=== PATIENT | female | born 1960 | race Caucasian/White ===

== ENCOUNTER 2019-11-21 00:11 | Observation (INO) ==
--- OUTSIDE RECORDS SUMMARY | 2019-11-21 00:14 | External Medical Summary | Continuity of Care Document ---
:1960 Author Name Buddy Almanza, Provider Address Unavailable Unavailable , Care Team Providers Name Role Phone Unavailable Unavailable Unavailable Janet Bernard M.D. Unavailable [email or web address] Ra Wilson M.D. Unavailable [email or web address] PCP, UNKNOWN Unavailable Unavailable Unavailable Unavailable Unavailable Problems General counselling and advice on contraception (V25.09) (Z3 0.09) Allergies and Adverse Reactions No Known Drug Allergies (Allergy) Medications Norethindrone 0.35 MG Oral Tablet; Take 1 tablet daily Archie Dalal Start: 16-Feb-2011 Quantity: 1 28 EA Disp Pack Refills: 1 Jolivette 0.35 MG TABS; TAKE 1 TABLET DAILY. Archie Bernard Start: 13-Feb-2012 Quantity: 28 Refills: 1 Procedures History of Tonsillectomy Status: Complet ed General counselling and advice on contraception Immunizations Immunizations not documented Family History Mother Family history of Cervical Cancer Status: Active Unknown Family Member Family history of Diabetes Mellitus (V18.0) Status: Active Comments: Family History Social History - Smoking Status Unknown if ever smoked Plan of Treatment Planned Observations Planned Goals not documented Results No Known Results Results not documented
--- OUTSIDE RECORDS SUMMARY | 2019-11-21 00:14 | External Medical Summary | Continuity of Care Document ---
:1960 Author Name Buddy Almanza, Provider Address Unavailable Unavailable , Care Team Providers Name Role Phone Unavailable Unavailable Unavailable Janet Bernard M.D. Unavailable [email or web address] Ra Wilson M.D. Unavailable [email or web address] PCP, UNKNOWN Unavailable Unavailable Unavailable Unavailable Unavailable Problems General counselling and advice on contraception (V25.09) (Z3 0.09) Allergies and Adverse Reactions No Known Drug Allergies (Allergy) Medications Jolivette 0.35 MG TABS; TAKE 1 TABLET DAILY. Archie Bernard Start: 13-Feb-2012 Quantity: 28 Refills: 1 Norethindrone 0.35 MG Oral Tablet; Take 1 tablet daily Archie Dalal Start: 16-Feb-2011 Quantity: 1 28 EA Disp Pack Refills: 1 Procedures History of Tonsillectomy Status: [...]
[2019-11-21] MEDS ORDERED: ONDANSETRON INJ 2 MG/ML 2 ML VIAL IV STA ×2 (00:27→02:09)
[2019-11-21] MEDS ORDERED: MoRPHine SULFATE 4 MG/ML 1 ML CARP\\VIAL IV STA ×2 (00:27→02:09)
[2019-11-21] MEDS ORDERED: SODIUM CHLORIDE 0.9% 500 ML IV SCH (00:30)
[2019-11-21 00:48] LABS: Basophils # (auto) 0.04 K/uL (0-0.2); Basophils % (auto) 0.4 %; Eosinophils # (auto) 0.13 K/uL (0-0.5); Eosinophils % (auto) 1.3 %; Hematocrit (blood only) 39.7 % (37-47); Hemoglobin 12.9 g/dL (12.0-16.0); Immature Granulocytes # (auto) 0.01 K/uL (0.00-0.02); Immature Granulocytes % (auto) 0.1 %; Lymphocytes # (auto) 2.66 K/uL (1.2-3.4); Lymphocytes % (auto) 27.5 %; Mean Corpuscular Hemoglobin 28.7 pg (25-34); Mean Corpuscular Hgb Conc 32.5 g/dL (32-36); Mean Corpuscular Volume 88.2 fL (80-100); Mean Platelet Volume 9.6 fL (7.4-10.4); Monocytes # (auto) 1.05 K/uL (0.11-0.59); Monocytes % (auto) 10.8 %; Neutrophils % (auto) 59.9 %; Platelet Count 226 K/uL (130-400); RDW Standard Deviation 45.3 fL (36.4-46.3); White Blood Count 9.69 K/uL (4.8-10.8)
[2019-11-21 00:48] LABS: iSTAT Creatinine 0.8 mg/dl (0.6-1.3); iSTAT Hemoglobin 13.3 g/dl (12.0-16.0); iSTAT Ionized Calcium 1.15 mmol/l (1.12-1.32); iSTAT Potassium 3.7 mmol/L (3.3-5.0)
[2019-11-21 01:04] LABS: Albumin Level 3.9 gm/dl (3.4-5.0); BUN Creatinine Ratio 24.4 (10-20); Calcium 9.2 mg/dl (8.5-10.1); Creatinine Clr Calc Pharmacy 88.1 ml/min; Est GFR (African American) 85.1; Est GFR (Non-African American) 73.4; Potassium 3.6 mmol/L (3.5-5.1)
[2019-11-21 01:07] LABS: Albumin Globulin Ratio 0.9 (0.9-2); Bilirubin,Total 0.7 mg/dl (0.2-1); Globulin 4.3 gm/dl (2.5-4.0); Total Protein 8.2 gm/dl (6.4-8.2)
[2019-11-21 01:31] LABS: Partial Thromboplastin Time 26.7 Seconds (21.0-31.0); Prothrombin Time 10.4 Seconds (9.0-12.0)
[2019-11-21] MEDS ORDERED: OPTIRAY 320 125ml IV PRN (01:51)
--- NOTE | 2019-11-21 02:02 | Emergency Department Note ---
Entered by Jeanie Israel acting as a scribe for History of Present Illness General Chief complaint: Rib Injury/Pain Stated complaint: STABBING RIB PAIN Time Seen by Provider: 11/21/19 00:21 Source: patient Mode of arrival: ambulatory Limitations: no limitations History of Present Illness Onset (ago): hour(s) 1 Location: chest (right rib) Radiation: non-radiation Pain Consistency: + constant Maximum Pain Intensity: 9 Current Pain Intensity: 9 Relieved By: + none Exacerbated By: + movement Associated symptoms: + shortness of breath and + other (-urinary symptoms); no chest pain, no fever/chills and no nausea/vomiting Treatments prior to arrival: none The patient is a 59 year old female who presents to the ED with complaints of right rib 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 She states the pain feels sharp in nature and rates her discomfort as a 9/10 in severity. Movement worsens her pa in. She denies any recent leg swelling besides an ankle that has been "swollen for months" but states that this is likely secondary to her weight. She admits to a history of a superficial blood clot in her leg previously while on hormone therapy. She denies any history of PE. She denies any chest pain, urinary symptoms, fever or vomiting. She does complain of shortness of breath but states this is from pain. She denies any history of kidney stones. The patient states she ate a meat lovers pizza at 1730 this evening. She still has her gallbladder. The patient states she has no chronic medical problems and had been doing well "until this pain started". Home Medications Home Medications Medication Instructions Recorded Confirmed Type citalopram 20 mg PO DAILY 11/21/19 11/21/19 History Allergies Allergy/AdvReac Type Severity Reaction Status Date / Time No Known Allergies Allergy NONE Verified 11/21/19 00:29 Past Med/Surg History Medical History Tear of medial meniscus of left knee Social History Preferred Language: Uzbek Feels Safe at Home: Yes Smoking Status: Never smoker Review of Systems See HPI for pertinent positives & negatives. and A total of 10 systems reviewed and were otherwise negative Physical Exam Vital Signs Vital Signs - 24 hr 11/21/19 00:18 11/21/19 01:04 11/21/19 01:56 Temperature 36.3 C L Temperature Source Oral Pulse Rate 67 65 Pulse Rate [Right Finger] 64 64 Pulse Rhythm Regular Pulse Rhythm [Right Finger] Regular Pulse Strength [Right Finger] Normal Respiratory Rate 22 16 24 Respiratory Effort / Characteristics Non-Labored Spontaneous Respiratory Depth Normal Normal Respiratory Pattern Regular Blood Pressure 144/78 H Blood Pressure [Right Arm] 128/90 125/67 Blood Pressure Mean 100 Blood Pressure Mean [Right Arm] 102 86 Blood Pressure Position [Right Arm] Standing Lying Pulse Oximetry 99 99 96 Oxygen Delivery Method Room Air Room Air Sepsis Recent Fever Within 48 Hours No Sepsis Action Taken by Nursing No Action Required Constitutional: Vital signs reviewed. Eyes: Pupils are equal round reactive to light. Conjunctiva are noninjected. ENT: Pharynx is clear without erythema or exudate. Mucous membranes are moist. Neck supple without meningeal signs. Respiratory: Clear to auscultation bilaterally. Breath sounds are equal bilaterally. Cardiovascular: Regular rate and rhythm. No rubs or gallops. GI: Soft and nondistended. RUQ tenderness. No Ko's sign. Bowel sounds are present. Musculoskeletal: No peripheral edema. No lower extremity tenderness. Integumentary: No cyanosis. Neurological: The patient is awake and alert. No focal deficits. Psychiatric: Normal affect. Course Course 0022: The patient was evaluated in room B2 and a complete history and physical were performed. 0110: I reevaluated the patient. She states her pain is now going across her mid abdomen. She is tender in that area right now. We are awaiting her CT results. 0128: I reevaluated the patient. She states the pain is now more in her right ribs and she cannot take a deep breath because of pain. She is agreeable to CT angiogram of the chest. Consultations Consultation #1: Dr. Lockett Time: 02:15 Administered Medications Ioversol (Optiray 320 125ml) 125 ml IV ONCE PRN PRN Reason: Interaction Checking Stop: 11/25/19 01:50 Last Admin: 11/21/19 01:52 Dose: 93 ml Documented by: [id number] Discontinued Medications Sodium Chloride (Nss) 500 mls @ 999 mls/hr IV .Q31M MAYA Stop: 11/21/19 01:00 Last Infusion: 11/21/19 01:28 Dose: 0 mls/hr Documented by: [id number] Admin: 11/21/19 00:36 Dose: 999 mls/hr Documented by: [id number] Morphine Sulfate (Morphine Sulfate) 4 mg IV NOW STA Stop: 11/21/19 00:28 Last Admin: 11/21/19 00:36 Dose: 4 mg Documented by: [id number] Ondansetron HCl (Zofran) 4 mg IV NOW STA Stop: 11/21/19 00:28 Last Admin: 11/21/19 00:36 Dose: 4 mg Documented by: [id number] Medical Decision Making Differential Diagnosis The differential diagnoses considered include cholecystitis, kidney stone, PE, [place], pneumothorax. Medical Records Attestation: I reviewed the patient's medical records. I did perform a limited focused review of portions of the patient's old chart on the electronic medical record. The patient has had no recent pertinent visits to this hospital. Home Medications Current Medication List: was personally reviewed by me Laboratory Data Attestation: I reviewed the patient's lab results. Result diagrams: 11/21/19 00:39 11/21/19 00:39 Lab Results 11/21/19 11/21/19 11/21/19 Range/Units 00:32 00:33 00:39 WBC (4.8-10.8) K/uL RBC (4.2-5.4) M/uL Hgb (12.0-16.0) g/dL POC Hgb 13.3 (12.0-16.0) g/dl Hct (37-47) % POC Hct 39 (37-47) % MCV (80-100) fL MCH (25-34) pg MCHC (32-36) g/dL RDW Std Deviation (36.4-46.3) fL RDW Coeff of Janie (11.5-14.5) % Plt Count (130-400) K/uL MPV (7.4-10.4) fL Immature Gran % (Auto) % Neut % (Auto) % Lymph % (Auto) % [place] % (Auto) % Eos % (Auto) % Baso % (Auto) % Immature Gran # (Auto) (0.00-0.02) K/uL Neut # (Auto) (1.4-6.5) K/uL Lymph # (Auto) (1.2-3.4) K/uL [place] # (Auto) (0.11-0.59) K/uL Eos # (Auto) (0-0.5) K/uL Baso # (Auto) (0-0.2) K/uL PT (9.0-12.0) Seconds INR (0.9-1.1) APTT (21.0-31.0) Seconds PTT Ratio POC D-Dimer 300 (0-450) ng/mlFEU POC Sodium 138 (135-144) mmol/L Sodium 136 (136-145) mmol/L POC Potassium 3.7 (3.3-5.0) mmol/L Potassium 3.6 (3.5-5.1) mmol/L POC Chloride 101 (101-112) mmol/L Chloride 104 (98-107) mmol/L Carbon Dioxide 27 (21-32) mmol/L POC Total CO2 25 (24-31) mEq/l Anion Gap 6.0 (3-11) POC Anion Gap 16.0 (16-25) mmol/L POC BUN 20 H (7-18) mg/dl BUN 21 H (7-18) mg/dl Creatinine 0.87 (0.6-1.2) mg/dl POC Creatinine 0.8 (0.6-1.3) mg/dl Est Cr Clr Drug Dosing 88.1 ml/min Est GFR ( Amer) 85.1 Est GFR (Non-Af Amer) 73.4 BUN/Creatinine Ratio 24.4 H (10-20) Glucose 98 (70-99) mg/dl POC Glucose (other) 101 H (70-99) mg/dl Calcium 9.2 (8.5-10.1) mg/dl POC Ioniz Calcium Nubia 1.15 (1.12-1.32) mmol/l Total Bilirubin 0.7 (0.2-1) mg/dl AST 12 L (15-37) U/L ALT 21 (12-78) U/L Alkaline Phosphatase 114 (45-117) U/L POC Troponin I < 0.03 (0-0.045) ng/ml Total Protein 8.2 (6.4-8.2) gm/dl Albumin 3.9 (3.4-5.0) gm/dl Globulin 4.3 H (2.5-4.0) gm/dl Albumin/Globulin Ratio 0.9 (0.9-2) Lipase 85 (73-393) U/L 11/21/19 11/21/19 Range/Units 00:39 00:39 WBC 9.69 (4.8-10.8) K/uL RBC 4.50 (4.2-5.4) M/uL Hgb 12.9 (12.0-16.0) g/dL POC Hgb (12.0-16.0) g/dl Hct 39.7 (37-47) % POC Hct (37-47) % MCV 88.2 (80-100) fL MCH 28.7 (25-34) pg MCHC 32.5 (32-36) g/dL RDW Std Deviation 45.3 (36.4-46.3) fL RDW Coeff of Janie 14.0 (11.5-14.5) % Plt Count 226 (130-400) K/uL MPV 9.6 (7.4-10.4) fL Immature Gran % (Auto) 0.1 % Neut % (Auto) 59.9 % Lymph % (Auto) 27.5 % [place] % (Auto) 10.8 % Eos % (Auto) 1.3 % Baso % (Auto) 0.4 % Immature Gran # (Auto) 0.01 (0.00-0.02) K/uL Neut # (Auto) 5.80 (1.4-6.5) K/uL Lymph # (Auto) 2.66 (1.2-3.4) K/uL [place] # (Auto) 1.05 H (0.11-0.59) K/uL Eos # (Auto) 0.13 (0-0.5) K/uL Baso # (Auto) 0.04 (0-0.2) K/uL PT 10.4 (9.0-12.0) Seconds INR 1.0 (0.9-1.1) APTT 26.7 (21.0-31.0) Seconds PTT Ratio 1.0 POC D-Dimer (0-450) ng/mlFEU POC Sodium (135-144) mmol/L Sodium (136-145) mmol/L POC Potassium (3.3-5.0) mmol/L Potassium (3.5-5.1) mmol/L POC Chloride (101-112) mmol/L Chloride (98-107) mmol/L Carbon Dioxide (21-32) mmol/L POC Total CO2 (24-31) mEq/l Anion Gap (3-11) POC Anion Gap (16-25) mmol/L POC BUN (7-18) mg/dl BUN (7-18) mg/dl Creatinine (0.6-1.2) mg/dl POC Creatinine (0.6-1.3) mg/dl Est Cr Clr Drug Dosing ml/min Est GFR ( Amer) Est GFR (Non-Af Amer) BUN/Creatinine Ratio (10-20) Glucose (70-99) mg/dl POC Glucose (other) (70-99) mg/dl Calcium (8.5-10.1) mg/dl POC Ioniz Calcium Nubia (1.12-1.32) mmol/l Total Bilirubin (0.2-1) mg/dl AST (15-37) U/L ALT (12-78) U/L Alkaline Phosphatase (45-117) U/L POC Troponin I (0-0.045) ng/ml Total Protein (6.4-8.2) gm/dl Albumin (3.4-5.0) gm/dl Globulin (2.5-4.0) gm/dl Albumin/Globulin Ratio (0.9-2) Lipase (73-393) U/L Imaging Data Radiologist's Impression: Radiology results as stated below per my review and the radiologist's interpretation: CT ABDOMEN & PELVIS Without Contrast: Unremarkable appearance of the liver, gallbladder, pancreas, spleen, adrenal glands, kidneys, and reproductive organs. No nephrolithiasis or cholelithiasis. No acute process along the GI tract. Mild sigmoid diverticulosis without diverticulitis. The appendix is not visualized however there are no secondary signs of acute appendicitis. Radiologist: Flavio England MD CTA CHEST: No acute pulmonary embolus. Normal caliber of the aorta without dissection. Unremarkable appearance of the heart. No consolidation, interstitial edema, pneumothorax, or pleural effusion. The remainder of the soft tissues and the osseous structures are unremarkable in appearance. Radiologist: Flavio England MD ECG Data Attestation: I personally reviewed and interpreted this ECG as follows: Indication: + other (right rib pain) Rate (beats per minute): 68 Rhythm: + other (Narrow complex rhythm, limited interpretation due to artifact) ECG Intervals/blocks: + Normal QRS ECG ST segments: no ST elevation ECG Findings: no PVCs Blood Pressure Blood Pressure Findings: Elevated blood pressure MDM Narrative I did evaluate the patient as noted above. The patient is presenting with sudden onset of right lower chest and upper abdominal pain with shortness of breath. On exam she has some right upper quadrant tenderness. She does have a history of prior superficial thrombophlebitis but states that this was while she was on hormone therapy. She is no longer on hormone therapy. She did eat a [employer] pizza tonight and I was also concerned about the possibility of kidney stone or cholelithiasis. IV access was established. The patient was placed on a continuous product support manager. I did treat the patient with IV morphine and Zofran. I did order and personally review the patient's 12-lead EKG as described above. Her twelve-lead EKG demonstrates no acute ischemic changes. I did order a urine analysis. I did order and review the patient's blood work as noted in the electronic medical record. CBC is unremarkable without leukocytosis or anemia. Electrolytes are unremarkable. LFTs and lipase are not elevated. Troponin is negative. I did order a CT of the abdomen and pelvis. I did review the images myself as well as the radiology report as described above. There is no evidence of gallbladder disease or kidney stones. No acute process within the abdomen and pelvis. I did reassess the patient. Patient stated that initially the pain had moved to her mid abdomen but now was more settled in her right lower chest. She does states she is persistently short of breath. Although her d-dimer is negative I was concerned about the possibility of PE and so she was agreeable to a CT of the chest. CT angiogram of the chest was performed and showed no evidence of PE. I did reexamine the patient again. She continues to have pain and so I did feel hospitalization was prudent for further evaluation with possible gallbladder ultrasound versus HIDA scan in the morning as well as repeat labs. She was given additional pain medication with IV morphine and Zofran. I did discuss the case with the hospitalist and family caseworker. Impression & Plan Abdominal pain, acute, right upper quadrant, Intractable abdominal pain, Acute dyspnea Discharge Plan Visit Data Chief Complaint: Rib Injury/Pain Stated Complaint: STABBING RIB PAIN ED Provider: Bradley Lamar Discharge Problem: Abdominal pain, acute, right upper quadrant, Intractable abdominal pain, Acute dyspnea Patient Disposition: Being Evaluated by Hospitalist Forms Stand Alone Forms: My [facility] Prescriptions Prescriptions: No Action citalopram 20 mg tablet 20 mg PO DAILY RF: 0 Referrals Referrals: Nuris Chambers, DO [Primary Care Provider] - The scribe's documentation has been prepared under my direction and personally reviewed by me in its entirety. I confirm that the note above accurately reflects all work, treatment, procedures, and medical decision making performed by me.
--- NOTE | 2019-11-21 02:51 | History & Physical Report ---
Date of Service November 21, 2019 Assessment & Plan (1) Pain: Right chest/upper abdomen Differentials : Gallbladder disease Musculoskeletal pathology Mood disorder, stable OBS GMF Analgesia Gallbladder ultrasound RE RUQ pain Further management pending gallbladder ultrasound results DVT prophylaxis Lovenox subcu Full code History of Present Illness Chief Complaint: Right-sided chest/upper abdominal pain Primary Care Provider: Nuris Chambers DO History obtained from patient and records. Medical history significant for mood disorder, history traumatic pneumothorax. Few hours ago patient noted sharp right lower rib rib/upper abdominal pain with nausea/emesis. Some shortness of breath secondary to inability to take a deep breath. No fever, no chills. No rashes noted. No recollection of recent trauma. Usual workout routine. Intractable pain at the ER. Medical History as above Surgical History : Tonsillectomy, knee surgery Family History : Uterine cancer, mood disorder, diabetes, rheumatoid arthritis Personal/Social history : Non-smoker, no EtOH intake, caregiver for her Allergies Allergy/AdvReac Type Severity Reaction Status Date / Time No Known Allergies Allergy NONE Verified 11/21/19 00:29 Home Medications Home Medications Medication Instructions Recorded Confirmed Type citalopram 20 mg PO DAILY 11/21/19 11/21/19 History Past Med/Surg History Medical History Tear of medial meniscus of left knee Social History Preferred Language: Kosovan Communication Ability: Effective Career Services Director Required: No Beliefs That Will Affect Care: None Current Living Situation: Spouse and Parent Current Living Situation Comment: lives with huband and mother Other Information That Helps Us Care for You: No Feels Safe at Home: Yes Safety Concerns: Feels Safe At This Time Smoking Status: Never smoker Do You Dip or Chew Tobacco: No ; Second Hand Exposure: No ; Tobacco Cessation Education Requested by Patient: No Hx Alcohol Use: No Hx Substance Use: No Review of Systems Review of Systems: As per HPI, all 10 systems reviewed, all other ROS negative Physical Exam Physical Exam: GENERAL: Slightly uncomfortable, obese, pleasant, no respiratory distress SKIN: Normal color, warm HEENT: [place] palpebral conjunctivae, no ptosis, dry buccal mucosa NECK : Supple, short neck, no tenderness CHEST : Decreased breath sounds, right lower chest wall tenderness HEART : RRR, no obvious murmurs ABDOMEN: Some distention, right upper quadrant tenderness EXTREMITIES : Minimal LE swelling, no LE tenderness, no other conspicuous deformities noted NEUROLOGIC : Coherent, no facial asymmetry, no other gross focality Results & Data Vital Signs (Past 12 Hours) Vital Signs Temp Pulse Pulse Resp BP BP Pulse Ox 11/21/19 02:18 61 16 119/71 96 11/21/19 01:56 65 64 24 125/67 96 11/21/19 01:04 64 16 128/90 99 11/21/19 00:18 36.3 C L 67 22 144/78 H 99 Laboratory Results Laboratory Results WBC 9.69 K/uL (4.8-10.8) 11/21/19 00:39 RBC 4.50 M/uL (4.2-5.4) 11/21/19 00:39 Hgb 12.9 g/dL (12.0-16.0) 11/21/19 00:39 POC Hgb 13.3 g/dl (12.0-16.0) 11/21/19 00:32 Hct 39.7 % (37-47) 11/21/19 00:39 POC Hct 39 % (37-47) 11/21/19 00:32 MCV 88.2 fL (80-100) 11/21/19 00:39 MCH 28.7 pg (25-34) 11/21/19 00:39 MCHC 32.5 g/dL (32-36) 11/21/19 00:39 RDW Std Deviation 45.3 fL (36.4-46.3) 11/21/19 00:39 RDW Coeff of Janie 14.0 % (11.5-14.5) 11/21/19 00:39 Plt Count 226 K/uL (130-400) 11/21/19 00:39 MPV 9.6 fL (7.4-10.4) 11/21/19 00:39 Immature Gran % (Auto) 0.1 % 11/21/19 00:39 Neut % (Auto) 59.9 % 11/21/19 00:39 Lymph % (Auto) 27.5 % 11/21/19 00:39 [place] % (Auto) 10.8 % 11/21/19 00:39 Eos % (Auto) 1.3 % 11/21/19 00:39 Baso % (Auto) 0.4 % 11/21/19 00:39 Immature Gran # (Auto) 0.01 K/uL (0.00-0.02) 11/21/19 00:39 Neut # (Auto) 5.80 K/uL (1.4-6.5) 11/21/19 00:39 Lymph # (Auto) 2.66 K/uL (1.2-3.4) 11/21/19 00:39 [place] # (Auto) 1.05 K/uL (0.11-0.59) H 11/21/19 00:39 Eos # (Auto) 0.13 K/uL (0-0.5) 11/21/19 00:39 Baso # (Auto) 0.04 K/uL (0-0.2) 11/21/19 00:39 PT 10.4 Seconds (9.0-12.0) 11/21/19 00:39 INR 1.0 (0.9-1.1) 11/21/19 00:39 APTT 26.7 Seconds (21.0-31.0) 11/21/19 00:39 PTT Ratio 1.0 11/21/19 00:39 POC D-Dimer 300 ng/mlFEU (0-450) 11/21/19 00:33 POC Sodium 138 mmol/L (135-144) 11/21/19 00:32 Sodium 136 mmol/L (136-145) 11/21/19 00:39 POC Potassium 3.7 mmol/L (3.3-5.0) 11/21/19 00:32 Potassium 3.6 mmol/L (3.5-5.1) 11/21/19 00:39 POC Chloride 101 mmol/L (101-112) 11/21/19 00:32 Chloride 104 mmol/L (98-107) 11/21/19 00:39 Carbon Dioxide 27 mmol/L (21-32) 11/21/19 00:39 POC Total CO2 25 mEq/l (24-31) 11/21/19 00:32 Anion Gap 6.0 (3-11) 11/21/19 00:39 POC Anion Gap 16.0 mmol/L (16-25) 11/21/19 00:32 POC BUN 20 mg/dl (7-18) H 11/21/19 00:32 BUN 21 mg/dl (7-18) H 11/21/19 00:39 Creatinine 0.87 mg/dl (0.6-1.2) 11/21/19 00:39 POC Creatinine 0.8 mg/dl (0.6-1.3) 01 00:32 Est Cr Clr Drug Dosing 88.1 ml/min 11/21/19 00:39 Est GFR ( Amer) 85.1 11/21/19 00:39 Est GFR (Non-Af Amer) 73.4 11/21/19 00:39 BUN/Creatinine Ratio 24.4 (10-20) H 11/21/19 00:39 Glucose 98 mg/dl (70-99) 11/21/19 00:39 POC Glucose (other) 101 mg/dl (70-99) H 11/21/19 00:32 Calcium 9.2 mg/dl (8.5-10.1) 11/21/19 00:39 POC Ioniz Calcium Nubia 1.15 mmol/l (1.12-1.32) 11/21/19 00:32 Total Bilirubin 0.7 mg/dl (0.2-1) 11/21/19 00:39 AST 12 U/L (15-37) L 11/21/19 00:39 ALT 21 U/L (12-78) 11/21/19 00:39 Alkaline Phosphatase 114 U/L (45-117) 11/21/19 00:39 POC Troponin I < 0.03 ng/ml (0-0.045) 11/21/19 00:33 Total Protein 8.2 gm/dl (6.4-8.2) 11/21/19 00:39 Albumin 3.9 gm/dl (3.4-5.0) 11/21/19 00:39 Globulin 4.3 gm/dl (2.5-4.0) H 11/21/19 00:39 Albumin/Globulin Ratio 0.9 (0.9-2) 11/21/19 00:39 Lipase 85 U/L (73-393) 11/21/19 00:[address] chest initial read: No acute pulmonary embolus. No aortic dissection. Unremarkable appearance of the heart. No consolidation or pleural effusion or pneumothorax. CT abdomen pelvis initial read: Unremarkable appearance of the liver, gallbladder, pancreas, spleen, adrenal glands, kidneys and reproductive organs. Mild sigmoid diverticulosis. EKG as per my interpretation rate 70, NSR, normal axis, no ischemia
[2019-11-21] MEDS ORDERED: TRAMADOL HCL 50 MG TABLET PO PRN (04:00)
[2019-11-21] MEDS ORDERED: KETOROLAC TROMETHAMINE 15 MG/ML VIAL IV PRN (04:00)
[2019-11-21] MEDS ORDERED: ACETAMINOPHEN 325 MG TAB PO PRN (04:00)
[2019-11-21] MEDS ORDERED: D5W AND LACTATED RINGERS 1,000 ML IV SCH (04:00)
[2019-11-21] MEDS ORDERED: PROMETHAZINE HCL 12.5 MG in SODIUM CHLORIDE 0.9% 50 ML IV PRN (04:00)
[2019-11-21] MEDS ORDERED: MoRPHine SULFATE 4 MG/ML 1 ML CARP\\VIAL IV PRN (04:00)
[2019-11-21] MEDS ORDERED: LACTATED RINGER'S 1,000 ML IV ONE (04:15)
[2019-11-21] MEDS ORDERED: IBUPROFEN 200 MG TAB PO PRN (04:15)
[2019-11-21 04:34] LABS: Appearance Urine Clear (Clear); Bilirubin Urine Negative (Negative); Blood Urine Negative (Negative); Color Urine Yellow; Glucose Urine UA Negative (Negative); Ketones Urine Negative (Negative); Leukocyte Esterase Urine Negative (Negative); Nitrite Urine Negative (Negative); Protein Urine Negative (Negative); Specific Gravity Urine 1.043 (1.000-1.030); Urobilinogen Urine Negative (Negative); pH Urine 5.5 (4.5-7.5)
--- NOTE | 2019-11-21 06:46 | CT Scan Report ---
CT SCAN OF THE ABDOMEN AND PELVIS WITHOUT CONTRAST CLINICAL HISTORY: Right-sided abdominal pain COMPARISON STUDY: No previous studies for comparison. TECHNIQUE: CT scan of the abdomen and pelvis was performed from the lung bases to the proximal femurs . Images are reviewed in the axial, sagittal, and coronal planes. IV contrast was not administered fo r this examination. A dose lowering technique was utilized adhering to the principles of ALARA. CT DOSE: 1562.79 mGy.cm FINDINGS: Lower chest: There are mild lower lung zone atelectatic changes Liver: The unenhanced liver is normal in size, contour, and attenuation. There is no intrahepatic christin iary ductal dilatation. Gallbladder: Unremarkable. Spleen: Normal in size and attenuation. Pancreas: Unremarkable. Adrenal glands: Unremarkable. Kidneys: No renal, ureteral, or bladder calculi are visualized. Bowel: There are no transition zones indicate bowel obstruction. There is no evidence of acute divert iculitis. There are no findings to indicate acute appendicitis. Peritoneum: There is no intraperitoneal free air or abdominal ascites. Vasculature: The abdominal aorta is normal in course and caliber. There are left inguinal and proxima l thigh varicosities. Adenopathy: None. Pelvic viscera: The bladder, and pelvic viscera are unremarkable. Skeletal structures: No destructive osseous lesions are seen. IMPRESSION: 1. No acute intra-abdominal or pelvic findings 2. No evidence of bowel obstruction. No evidence of free air 3. No renal, ureteral, or bladder calculi identified 4. Diverticulosis. No evidence of acute diverticulitis. No evidence of acute appendicitis. ACT 112: Negative or not required by law. Electronically signed by: James Pinto M.D. 11/21/2019 6:44 AM
--- NOTE | 2019-11-21 06:56 | Ultrasound Report ---
US gallbladder CLINICAL HISTORY: 59 years-old Female presenting with ruq pain. TECHNIQUE: Real-time grayscale and limited color Doppler ultrasound imaging of the abdomen limited to the right upper quadrant was performed. COMPARISON: CT from performed earlier the same day. FINDINGS: The examination was limited due to patient body habitus and obscuration from bowel gas. Pancreas: Visualized portions of the pancreatic head and body normal. Liver: Normal echogenicity and echotexture. The liver measures 18.1 cm in maximal sagittal dimension. No sonographic evidence of hepatic mass. Main portal vein patent with normal directional flow. Biliary: No intrahepatic biliary ductal dilatation. Common bile duct measures up to 5 mm in diameter. Gallbladder: No evidence of gallstones, gallbladder wall thickening, gallbladder distention, or peric holecystic fluid or inflammatory change. Sonographic Ko's sign negative. Right kidney: Normal in appearance without evidence of hydronephrosis. Ascites: None. Other: None. IMPRESSION: No cholelithiasis or biliary ductal dilatation. ACT 112: Negative or not required by law. Electronically signed by: Jaime Dunn M.D. 11/21/2019 6:54 AM
--- NOTE | 2019-11-21 07:33 | CT Scan Report ---
CT ANGIOGRAM OF THE CHEST CLINICAL HISTORY: Right-sided chest wall pain. COMPARISON STUDY: No priors. TECHNIQUE: Following the IV administration of 93 cc of Optiray 320, CT angiogram of the chest was per formed from the upper abdomen to the thoracic inlet utilizing the pulmonary embolus protocol. Images are reviewed in the axial, sagittal, and coronal planes. 3-D MIPS images are created and assessed. IV contrast was administered without complication. A dose lowering technique was utilized adhering to the principles of ALARA. CT DOSE: 405.84 mGy.cm FINDINGS: Thyroid: Imaged portions of the thyroid gland are normal in size and attenuation. Thoracic aorta: The thoracic aorta is normal in caliber and demonstrates standard 3-vessel arch anato my. No dissection is seen. Pulmonary vasculature: The pulmonary trunk is normal in caliber. There are no filling defects identif ied in main, lobar, or segmental pulmonary branches to suggest pulmonary embolus. Heart: The heart is normal in size and without pericardial effusion. Lungs and pleural spaces: There is no airspace consolidation or pleural effusion. Dependent atelectas is is noted at the lung bases. The trachea and central airways are clear. Mediastinum: There is no mediastinal lymphadenopathy. Miriam: Clear. Axillae: There is no axillary lymphadenopathy. Upper abdomen: There is a small hiatal hernia. Partially visualized upper abdominal viscera is within normal limits. Skeletal structures: No lytic or blastic bony lesions are seen. IMPRESSION: 1. There is no evidence of pulmonary embolus in the main, lobar, or segmental pulmonary arteries. 2. There is no airspace consolidation or pleural effusion. ACT 112: Negative or not required by law. Electronically signed by: Nick Watt M.D. 11/21/2019 7:31 AM
[2019-11-21] MEDS ORDERED: ENOXAPARIN INJ 40 MG/0.4 ML SYR SQ SCH (09:00)
[2019-11-21] MEDS ORDERED: CITALOPRAM 20 MG TAB PO SCH (09:00)
--- NOTE | 2019-11-21 13:45 | Hospitalist Progress Note ---
Date of Service November 21, 2019 Assessment & Plan (1) Intractable abdominal pain: CT abd /pelvis showed no acute intra-abdominal or pelvic findings. No evidence of bowel obstruction. No evidence of free air. No evidence of acute diverticulitis. No evidence of acute appendicitis. Gallbladder u/s showed no evidence of gallstones, gallbladder wall thickening, gallbladder distention, or pericholecystic fluid or inflammatory change. CTA chest showed no evidence of pulmonary embolus in the main, lobar, or segmental pulmonary arteries. Received IVF narcotic in the ER Tolerated diet Last pain med documented to be around 4AM Clinically pain free now DVT px Lovenox Code Status Full code Disposition Follow up with your primary care provider 11/25 @ 12:[address] Ellison Subjective Pt was seen and examined Lying in bed with brother at bedside Pt said that she feels fine She said that she does not have any pain Tolerated diet She is very anxious to go home Denies any chest pain, palpitation and SOB Physical Exam Physical Exam: General- No acute distress Head- atraumatic Eyes- PERRL, EOMI, ENT- oropharynx clear Neck- supple, no JVD Lungs- clear to auscultation Heart- regular rhythm; no murmur Abdomen- normal bowel sounds, soft, nontender Extremities- no calf tenderness Neuro- alert, oriented x 3; PERRL, EOMI; no facial palsy; no dysarthria Skin- warm & dry Results & Data Vital Signs (Past 12 Hours) Vital Signs Temp Pulse Pulse Resp BP BP Pulse Ox 11/21/19 13:19 36.7 C 71 18 101/56 L 111/74 95 11/21/19 07:17 36.7 C 71 18 101/56 L 95 11/21/19 03:45 36.6 C 66 18 111/74 94 11/21/19 03:09 65 16 120/69 96 11/21/19 02:18 61 16 119/71 96 11/21/19 01:56 65 64 24 125/67 96
--- NOTE | 2019-11-21 17:18 | Electrocardiogram Report ---
Test Reason : Blood Pressure : / mmHG Vent. Rate : 068 BPM Atrial Rate : 046 BPM P-R Int : 000 ms QRS Dur : 082 ms QT Int : 414 ms P-R-T Axes : 000 021 024 degrees QTc Int : 440 ms Poor data quality, interpretation may be adversely affected Sinus rhythm Normal ECG When compared with ECG of 28-JUN-2016 13:01, No significant change Confirmed by Khalif Inman ([id number]) on 11/21/2019 5:17:48 PM Referred By: REFERRED SELF Confirmed By:Khalif Inman
--- NOTE | 2019-11-22 09:30 | Discharge Summary ---
Date of Service November 21, 2019 Admission HPI Per Admitting Provider History obtained from patient and records. Medical history significant for mood disorder, history traumatic pneumothorax. Few hours ago patient noted sharp right lower rib rib/upper abdominal pain with nausea/emesis. Some shortness of breath secondary to inability to take a deep breath. No fever, no chills. No rashes noted. No recollection of recent trauma. Usual workout routine. Intractable pain at the ER. Medical History as above Surgical History : Tonsillectomy, knee surgery Family History : Uterine cancer, mood disorder, diabetes, rheumatoid arthritis Personal/Social history : Non-smoker, no EtOH intake, caregiver for her Admission Exam Per Admitting Provider GENERAL: Slightly uncomfortable, obese, pleasant, no respiratory distress SKIN: Normal color, warm HEENT: [place] palpebral conjunctivae, no ptosis, dry buccal mucosa NECK : Supple, short neck, no tenderness CHEST : Decreased breath sounds, right lower chest wall tenderness HEART : RRR, no obvious murmurs ABDOMEN: Some distention, right upper quadrant tenderness EXTREMITIES : Minimal LE swelling, no LE tenderness, no other conspicuous deformities noted NEUROLOGIC : Coherent, no facial asymmetry, no other gross focality Principal Diagnosis Abdominal Pain Discharge Exam General- No acute distress Head- atraumatic Eyes- PERRL, EOMI, ENT- oropharynx clear Neck- supple, no JVD Lungs- clear to auscultation Heart- regular rhythm; no murmur Abdomen- normal bowel sounds, soft, nontender Extremities- no calf tenderness Neuro- alert, oriented x 3; PERRL, EOMI; no facial palsy; no dysarthria Skin- warm & dry Discharge Data Allergies Allergy/AdvReac Type Severity Reaction Status Date / Time No Known Allergies Allergy NONE Verified 11/21/19 00:29 Consultations 11/21/19 02:09 ED Decision to Admit Stat Ordered Studies 11/21/19 00:27 CT abd pelvis wo con Urgent 11/21/19 01:29 CT angio chest PE protocol Urgent 11/21/19 02:[address] SCAN OF THE ABDOMEN AND PELVIS WITHOUT CONTRAST CLINICAL HISTORY: Right-sided abdominal pain COMPARISON STUDY: No previous studies for comparison. TECHNIQUE: CT scan of the abdomen and pelvis was performed from the lung bases to the proximal femurs. Images are reviewed in the axial, sagittal, and coronal planes. IV contrast was not administered for this examination. A dose lowering technique was utilized adhering to the principles of ALARA. CT DOSE: 1562.79 mGy.cm FINDINGS: Lower chest: There are mild lower lung zone atelectatic changes Liver: The unenhanced liver is normal in size, contour, and attenuation. There is no intrahepatic biliary ductal dilatation. Gallbladder: Unremarkable. Spleen: Normal in size and attenuation. Pancreas: Unremarkable. Adrenal glands: Unremarkable. Kidneys: No renal, ureteral, or bladder calculi are visualized. Bowel: There are no transition zones indicate bowel obstruction. There is no evidence of acute diverticulitis. There are no findings to indicate acute appendicitis. Peritoneum: There is no intraperitoneal free air or abdominal ascites. Vasculature: The abdominal aorta is normal in course and caliber. There are left inguinal and proximal thigh varicosities. Adenopathy: None. Pelvic viscera: The bladder, and pelvic viscera are unremarkable. Skeletal structures: No destructive osseous lesions are seen. IMPRESSION: 1. No acute intra-abdominal or pelvic findings 2. No evidence of bowel obstruction. No evidence of free air 3. No renal, ureteral, or bladder calculi identified 4. Diverticulosis. No evidence of acute diverticulitis. No evidence of acute appendicitis. ACT 112: Negative or not required by law. Electronically signed by: James Pinto M.D. 11/21/2019 6:44 AM Dictated: 11/21/19641 Transcribed: 11/21/19641 CT ANGIOGRAM OF THE CHEST CLINICAL HISTORY: Right-sided chest wall pain. COMPARISON STUDY: No priors. TECHNIQUE: Following the IV administration of 93 cc of Optiray 320, CT angiogram of the chest was performed from the upper abdomen to the thoracic inlet utilizing the pulmonary embolus protocol. Images are reviewed in the axial, sagittal, and coronal planes. 3-D MIPS images are created and assessed. IV contrast was administered without complication. A dose lowering technique was utilized adhering to the principles of ALARA. CT DOSE: 405.84 mGy.cm FINDINGS: Thyroid: Imaged portions of the thyroid gland are normal in size and attenuation. Thoracic aorta: The thoracic aorta is normal in caliber and demonstrates standard 3-vessel arch anatomy. No dissection is seen. Pulmonary vasculature: The pulmonary trunk is normal in caliber. There are no filling defects identified in main, lobar, or segmental pulmonary branches to suggest pulmonary embolus. Heart: The heart is normal in size and without pericardial effusion. Lungs and pleural spaces: There is no airspace consolidation or pleural effusion. Dependent atelectasis is noted at the lung bases. The trachea and central airways are clear. Mediastinum: There is no mediastinal lymphadenopathy. Miriam: Clear. Axillae: There is no axillary lymphadenopathy. Upper abdomen: There is a small hiatal hernia. Partially visualized upper abdominal viscera is within normal limits. Skeletal structures: No lytic or blastic bony lesions are seen. IMPRESSION: 1. There is no evidence of pulmonary embolus in the main, lobar, or segmental pulmonary arteries. 2. There is no airspace consolidation or pleural effusion. ACT 112: Negative or not required by law. Electronically signed by: Nick Watt M.D. 11/21/2019 7:31 AM Dictated: 11/21/19727 Transcribed: 11/21/19727 gallbladder CLINICAL HISTORY: 59 years-old Female presenting with ruq pain. TECHNIQUE: Real-time grayscale and limited color Doppler ultrasound imaging of the abdomen limited to the right upper quadrant was performed. COMPARISON: CT from performed earlier the same day. FINDINGS: The examination was limited due to patient body habitus and obscuration from bowel gas. Pancreas: Visualized portions of the pancreatic head and body normal. Liver: Normal echogenicity and echotexture. The liver measures 18.1 cm in maximal sagittal dimension. No sonographic evidence of hepatic mass. Main portal vein patent with normal directional flow. Biliary: No intrahepatic biliary ductal dilatation. Common bile duct measures up to 5 mm in diameter. Gallbladder: No evidence of gallstones, gallbladder wall thickening, gallbladder distention, or pericholecystic fluid or inflammatory change. Sonographic Ko's sign negative. Right kidney: Normal in appearance without evidence of hydronephrosis. Ascites: None. Other: None. IMPRESSION: No cholelithiasis or biliary ductal dilatation. ACT 112: Negative or not required by law. Electronically signed by: Jaime Dunn M.D. 11/21/2019 6:54 AM Dictated: [birth year]/1949 Transcribed: 11/21/19648 Hospital Course (1) Intractable abdominal pain: CT abd /pelvis showed no acute intra-abdominal or pelvic findings. No evidence of bowel obstruction. No evidence of free air. No evidence of acute diverticulitis. No evidence of acute appendicitis. Gallbladder u/s showed no evidence of gallstones, gallbladder wall thickening, gallbladder distention, or pericholecystic fluid or inflammatory change. CTA chest showed no evidence of pulmonary embolus in the main, lobar, or segmental pulmonary arteries. Received IVF narcotic in the ER Tolerated diet Last pain med documented to be around 4AM Clinically pain free now DVT px Lovenox Code Status Full code Disposition Follow up with your primary care provider 11/25 @ 12:[address] Ellison Total Time Total Time Spent Total Time Spent (In Minutes): 35 minutes Total Time Includes: Examination of the Patient, Discharge Planning, Medication Reconciliation, Communication With Other Providers and Other Discharge Plan Discharge Items Patient Disposition: Home - Self-Care Reason For Visit: ABD PAIN Discharge Diagnosis: Abdominal pain Activity: Resume your previous activity Non-emergency contact: Primary Care Provider Call non-emergency contact if: you have any medication questions Follow-up/Referrals: Nuris Chambers, [Primary Care Provider] - Diet: Regular Addtl Attending Provider Instructions: Follow up with your primary care provider Dr. Ellison (Dr. Chambers's colleague ) on 11/25 @ 12:45 PM Pending Studies at Discharge: No Stand-Alone Forms: My [employer], Smoking Cessation Medications and DC Order Prescriptions: Continued citalopram 20 mg tablet 20 mg PO DAILY RF: 0 Discharge Orders: Discharge Order (Routine); Ordered 11/21/19 Ordered By: Jose Juan Maynard Admission Data Admit Date/Time: 11/21/19 02:52 Attending Provider: Jose Juan Maynard Admit Provider: Christofer Perez Primary Care Provider: Nuris Chambers Other Providers: Christofer Perez Other Interventions: Discharge Summary Assessment (RN) Last Done: 11/21/19 13:19 DC Date/Time DO NOT enter until pt leaves facility: 11/21/19 14:29
== END 2019-11-21 14:29 | disposition home or self-care (01) ==
LOC: ED 00:11 → 4W 00:11